=== PATIENT | female | born 1975 | race Caucasian/White ===

== ENCOUNTER 2017-06-25 19:21 | Emergency (ER) | payer SELFPAY ==
[~2017-06-25] VITALS: Ht 165.1 cm; Wt 57.1 kg
[2017-06-25 19:24] VITALS: BP 144/89; PULSE 78; RESP 20; TEMP 99.4; O2SAT 100
--- NOTE | 2017-06-25 19:50 | PD ---
HPI Chief Complaint: Flank/Kidney Pain Time Seen by Provider: 19:47 Travel History International Travel<30 days: No Contact w/Intl Traveler<30days: No Traveled to known affect area: No History of Present Illness HPI Patient presents with complaints of left sided back pain. Admits she is recently been moving. Denies nausea or vomiting. Denies any hematuria. Admits to some frequency without pain. Concerns of UTI. Denies colicky nature. Aggravated with movement. Improves with ambulation. No history of kidney stones. Denies any fever. Denies any new chest pain shortness of breath or bowel symptoms. PFSH Past Medical History Diminished Hearing: No Past Surgical History Gynecologic Surgery: Yes (hyst, 5 yr ago) Hysterectomy: Yes Social History Alcohol Use: No Tobacco Use: Yes Substance Use: Yes ("pot") Allergies-Medications (Allergen,Severity, Reaction): Coded Allergies: No Known Allergies (Verified , 08/11/15) Reported Meds & Prescriptions Reported Meds & Active Scripts Active No Active Prescriptions or Reported Medications Review of Systems General / Constitutional: No: Fever Eyes: No: Visual changes HENT: No: Headaches Cardiovascular: No: Chest Pain or Discomfort Respiratory: No: Shortness of Breath Gastrointestinal: No: Abdominal Pain Genitourinary: No: Dysuria Musculoskeletal: Positive: Pain Skin: No Rash Neurologic: No: Weakness Psychiatric: No: Depression Endocrine: No: Polydipsia Hematologic/Lymphatic: No: Easy Bruising Physical Exam Narrative GENERAL: Well-nourished, well-developed patient. SKIN: Focused skin assessment warm/dry. HEAD: Normocephalic. EYES: No scleral icterus. No injection or drainage. NECK: Supple, trachea midline. No JVD or lymphadenopathy. CARDIOVASCULAR: Regular rate and rhythm without murmurs, gallops, or rubs. RESPIRATORY: Breath sounds equal bilaterally. No accessory muscle use. GASTROINTESTINAL: Abdomen soft, non-tender, nondistended. MUSCULOSKELETAL: No cyanosis, or edema. BACK: Nontender without obvious deformity. No CVA tenderness. Examination of the lumbar spine reveals no midline tenderness left-sided paraspinous pain Data Data Last Documented VS Vital Signs Date Time Temp Pulse Resp B/P (MAP) Pulse Ox O2 Delivery O2 Flow Rate FiO2 06/25/17 19:24 99.4 78 20 144/89 (107) 100 Orders Orders Urinalysis - C+S If Indicated (5/19/18 19:47) Urine Culture (06/25/17 19:53) Labs Laboratory Tests Test 06/25/17 19:53 Urine Color YELLOW Urine Turbidity CLEAR Urine pH 5.5 Urine Specific [place] 1.015 Urine Protein NEG mg/dL Urine Glucose (UA) NEG mg/dL Urine Ketones 15 mg/dL Urine Occult Blood NEG Urine Nitrite POS Urine Bilirubin NEG Urine Urobilinogen 0.2 MG/DL Urine Leukocyte Esterase TRACE Urine RBC 0-3 /hpf Urine WBC 25-49 /hpf Urine WBC Clumps FEW Urine Squamous Epithelial Cells 0-5 /hpf Urine Bacteria MOD /hpf Microscopic Urinalysis Comment CULTURE INDICATED MDM Medical Decision Making Medical Screen Exam Complete: Yes Emergency Medical Condition: Yes Differential Diagnosis Lumbar muscular skeletal pain, lumbar degenerative disc disease, kidney stones, UTI Narrative Course Assessment and plan discussed the patient at bedside. Diagnosis Primary Impression: UTI (urinary tract infection) Qualified Codes: N39.0 - Urinary tract infection, site not specified Additional Impression: Lumbar muscle pain Patient Instructions: General Instructions Additional Instructions: Encourage nonsteroidal anti-inflammatories warm heat gentle stretching and strengthening and massage. Muscle relaxer as needed. Encourage fluids and a cranberry supplement. Follow-up with PCP. Return to emergency room with any onset of new symptoms. Med/Other Pt SpecificInfo: Prescription(s) given Scripts Sulfamethoxazole-Trimethoprim (Bactrim DS) 800-160 Mg Tab 1 TAB PO BID for Infection, #6 TAB 0 Refills Prov: Renny Fay MD 06/25/17 Cyclobenzaprine (Flexeril) 10 Mg Tab 10 MG PO TID for Muscle Spasm, #15 TAB 0 Refills Prov: Renny Fay MD 06/25/17 Disposition: 01 DISCHARGE HOME Condition: Good Renny Fay MD June 25, 2017 19:50
[2017-06-25 20:04] LABS: BILIRUBIN, URINE NEG (NEG); BLOOD, URINE NEG (NEG); GLUCOSE,URINE NEG (NEG); KETONE, URINE 15 mg/dL (NEG); NITRITE,URINE POS (NEG); PH, URINE 5.5 (5.0-8.5); URINE COLOR YELLOW (YELLW/STRAW); URINE LEUKOCYTE ESTERASE TRACE (NEG)
[2017-06-25 20:27] LABS: BACTERIA, URINE MOD /hpf; RBC, URINE 0-3 /hpf (0-3); SQUAMOUS EPITHELIAL CELL URINE 0-5 /hpf (0-5); WHITE BLOOD CELL CLUMPS FEW
[2017-06-25 20:35] VITALS: BP 130/86; PULSE 92; RESP 16; O2SAT 94
[2017-06-25] MEDS ORDERED: CYCL10TA PO (20:37)
[2017-06-25] MEDS ORDERED: BACT800T5 PO (20:37)
== END 2017-06-25 21:17 | disposition home or self-care (01) ==
LOC: PHED 19:21
DX: N39.0 Urinary tract infection, site not specified (principal); M79.1 Myalgia; B96.20 Unspecified Escherichia coli [E. coli] as the cause of diseases classified elsewhere; F17.200 Nicotine dependence, unspecified, uncomplicated; F12.90 Cannabis use, unspecified, uncomplicated
CPT/HCPCS: 81001; 87077; 87086; 87186; 99283